=== PATIENT | female | born 2000 | race Caucasian/White ===

== ENCOUNTER 2021-02-26 09:48 | Emergency (ER) | payer OTHER, SELFPAY ==
--- NOTE | 2021-02-26 09:51 | ED.ANIMALBIT ---
HPI - Animal Bite General Chief Complaint: Wound/Laceration Stated Complaint: Dog bite on 2 Fingers on left Hand Time Seen by Provider: 02/26/21 09:51 Source: patient and RN notes reviewed History of Present Illness HPI narrative: Patient is a 20-year-old female who presents the urgent care with complaints of a dog bite to the left hand. Patient states that it was her dog and she accidentally hit his face while he was sleeping and made him bite her . Patient states he is up-to-date on vaccinations and she is also up-to-date on her tetanus shot. Patient states that she has rinsed off the wounds but has not cleaned them prior to arrival. Patient states that happened approximately 1 hour ago. No other acute complaints. No acute distress noted. Patient read the plan of care. Some parts of this dictation were generated by voice recognition software and may contain typographical and/or grammatical inaccuracies. Related Data Allergies Allergy/AdvReac Type Severity Reaction Status Date / Time No Known Allergies Allergy Verified 02/26/21 10:07 Review of Systems Review of Systems: CONSTITUTIONAL: Denies fever, chills, or sweats. EYES: Denies visual changes, redness, or discharge. ENT: Denies rhinorrhea, congestion, sore throat, or otalgia. CARDIOVASCULAR: Denies chest pain, palpitations, or edema. RESPIRATORY: Denies cough or dyspnea. GASTROINTESTINAL: Denies abdominal pain, nausea, vomiting, or diarrhea. GENITOURINARY: Denies dysuria or hematuria. SKIN: Reports of wounds from a dog bite to the fourth and fifth digits of the left hand MUSCULOSKELETAL: Denies back pain, joint pain, or myalgia. NEUROLOGIC: Denies headache, numbness, or weakness. All other systems reviewed are negative, except as documented in HPI. PMFSH Comments At the time of my signature, I reviewed and agree with the nursing past medical, surgical, social, and family history. There is no relevant family history pertinent to the patient complaint. Exam Narrative: GENERAL: This is a well-nourished, well-developed patient, in no apparent distress. HEAD: normocephalic, atraumatic. EYES: PERRL. Sclera clear/white. Vision is grossly intact. EARS: External ears normal NOSE: External nose normal with no obvious nasal discharge, nares without redness, no rhinorrhea. THROAT: Mucous membranes moist NECK: Neck supple CARDIOVASCULAR: Regular rate and rhythm without murmurs, gallops, or rubs. RESPIRATORY: Clear to auscultation. Breath sounds equal bilaterally. No wheezes, rales, or rhonchi. SKIN: 3 cm linear superficial dog bite to the radial aspect of the fourth left digit. Puncture wound to the ulnar aspect of the fourth left digit. Puncture wound to the tuft of the fifth left digit NEURO: awake, alert, and oriented to person, place and time. There were no obvious focal neurologic abnormalities. EXTREMITIES: No clubbing, cyanosis, or edema. Positive strong left radial pulse with capillary refill less than 2 seconds. Range of motion to left upper extremity/hand/fingers within normal limits Course Vital Signs Vital signs: Vital Signs Temperature 98.1 F 02/26/21 10:00 Pulse Rate 85 02/26/21 10:00 Respiratory Rate 14 02/26/21 10:00 Blood Pressure 145/67 H 02/26/21 10:00 Pulse Oximetry 100 02/26/21 10:00 Temperature 98.1 F 02/26/21 10:00 Pulse Rate 85 02/26/21 10:00 Respiratory Rate 14 02/26/21 10:00 Blood Pressure 145/67 H 02/26/21 10:00 Pulse Oximetry 100 02/26/21 10:00 Reviewed-patient is informed that they may have pre-hypertension or hypertension based on a blood pressure reading in the department. I recommend the patient call the primary care provider listed on their discharge instructions or a physician of their choice this week to arrange follow-up for further evaluation of possible pre-hypertension or hypertension. MDM - Animal Bite MDM Narrative Medical decision making narrative: Advised the patient to keep the wounds very clean
[2021-02-26 10:00] VITALS: BP 145/67; PULSE 85; RESP 14; TEMP 36.7; O2SAT 100
== END 2021-02-26 10:21 | disposition home or self-care (01) ==
PROVIDERS: Emergency Provider Nurse Practitioner Family
DX: S61.255A Open bite of left ring finger without damage to nail, initial encounter (principal); S61.257A Open bite of left little finger without damage to nail, initial encounter; W54.0XXA Bitten by dog, initial encounter
CPT/HCPCS: 99203; G0463

== ENCOUNTER 2021-04-02 17:10 | Emergency (ER) | payer OTHER, SELFPAY ==
[2021-04-02 17:19] VITALS: BP 122/65; PULSE 87; RESP 14; TEMP 36.8; O2SAT 100
--- NOTE | 2021-04-02 17:58 | ED.URI ---
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 Patient has no fever has no nausea vomiting diarrhea had her first Covid vaccine last Wednesday has already had her flu shot Related Data Allergies Allergy/AdvReac Type Severity Reaction Status Date / Time No Known Allergies Allergy Verified 04/02/21 17:29 Review of Systems Review of Systems: CONSTITUTIONAL: Denies fever, chills, sweats. EYES: Denies visual changes, redness, discharge. ENT: Denies rhinorrhea, has congestion, has sore throat, otalgia. CARDIOVASCULAR: Denies chest pain, palpitations, edema. RESPIRATORY: Denies dyspnea, wheezing, no cough GASTROINTESTINAL: Denies abdominal pain, nausea, vomiting, diarrhea. GENITOURINARY: Denies dysuria, hematuria, abnormal discharge SKIN: Denies rash or itching. NEUROLOGIC: Denies numbness, or focal weakness. PSYCHIATRIC: Denies anxiety or depression. FORMERLY [facility], 1928–1983 Past Medical History Medical History No acute medical problems Family History Family History Other Diabetes mellitus Hypertension Social History Social History (Updated 04/02/21 @ 18:04 by Naty Mariscal CNP) Smoking status: Former smoker Alcohol intake: current Comments At time of signature, I agree with nursing past medical, surgical, social and family history. There is no relevant family history pertinent to the presenting complaint. Exam Narrative: GENERAL: This is a well-nourished, well-developed patient, in mild distress. HEAD: normocephalic, atraumatic. EYES: Sclera clear/white. Vision is grossly intact. EARS: External ears normal, auditory canals clear and without drainage, TMs normal without perforation. Hearing grossly intact. NOSE: External nose normal without nasal discharge, nares without redness, no rhinorrhea. THROAT: Mucous membranes moist, posterior pharynx mild erythema consistent with nasal drainage NECK: Neck supple, non-tender CARDIOVASCULAR: Regular rate and rhythm without murmurs, gallops, or rubs. RESPIRATORY: Clear to auscultation. Breath sounds equal bilaterally. No wheezes, rales, or rhonchi. GASTROINTESTINAL: Abdomen soft, non-tender, SKIN: warm, intact with no suspicious lesions or rash, good texture and turgor. NEURO: awake, alert, and oriented to person, place and time. There were no obvious focal neurologic abnormalities. Steady gait EXTREMITIES: Normal range of motion. BACK: Nontender without deformity Course Course Emergency Course: Patient here for evaluation of sore throat that started 1 hour ago-states that it was difficult for swallow all of a sudden and she was worried about having strep throat are some side effect of the Covid vaccine 5 days out Strep is negative Started on prednisone and Cepacol lozenges, zyrtec Vital Signs Vital signs: Vital Signs Temperature 98.2 F 04/02/21 17:19 Pulse Rate 87 04/02/21 17:19 Respiratory Rate 14 04/02/21 17:19 Blood Pressure 122/65 04/02/21 17:19 Pulse Oximetry 100 04/02/21 17:19 Temperature 98.2 F 04/02/21 17:19 Pulse Rate 87 04/02/21 17:19 Respiratory Rate 14 04/02/21 17:19 Blood Pressure 122/65 04/02/21 17:19 Pulse Oximetry 100 04/02/21 17:19 MDM - URI/Sore Throat Differential Diagnosis Differential diagnosis: Likely viral infection, pharyngitis and other Lab Data Labs: Strep Screen Presumptive Negative *(Reference Range: Negative)* Critical Care Time Critical Care Time Critical Care Time: No Discharge Plan Discharge
== END 2021-04-02 18:14 | disposition home or self-care (01) ==
PROVIDERS: Emergency Provider Nurse Practitioner
DX: J02.9 Acute pharyngitis, unspecified (principal); Z87.891 Personal history of nicotine dependence
CPT/HCPCS: 87081; 87880; 99213; G0463

== ENCOUNTER 2024-05-28 09:41 | Emergency (ER) | payer SELFPAY ==
[2024-05-28 09:50] VITALS: BP 109/72; PULSE 79; RESP 18; TEMP 36.4; O2SAT 100
[2024-05-28 09:54] VITALS: BP 109/72; PULSE 79; RESP 18; TEMP 36.4; O2SAT 100
--- NOTE | 2024-05-28 11:07 | ED_ITS ---
HPI - General Adult General Chief complaint: Upper Respiratory Infection Stated complaint: Sore Throat Source: patient Mode of arrival: ambulatory Limitations: no limitations History of Present Illness HPI narrative: Patient presents for evaluation of sore throat since yesterday. She also has an occasional cough. In individual with whom she came into brief contact at work was recently sick. Their interaction was simply in passing. She denies any fever, chills, nausea, vomiting, diarrhea. She is taking [id number] cough medication. She does vape. Related Data Home Medications Medication Instructions Recorded Confirmed No Home Medications 05/28/24 05/28/24 Allergies Allergy/AdvReac Type Severity Reaction Status Date / Time No Known Allergies Allergy Verified 05/28/24 09:54 Review of Systems Review of Systems: CONSTITUTIONAL: Denies fever, chills, or sweats. EYES: Denies visual changes, redness, or discharge. ENT: Reports sore throat. Denies rhinorrhea, congestion, or otalgia. CARDIOVASCULAR: Denies chest pain, palpitations, or edema. RESPIRATORY: Reports cough. Denies shortness of breath. GASTROINTESTINAL: Denies abdominal pain, nausea, vomiting, or diarrhea. GENITOURINARY: Denies dysuria or hematuria. SKIN: Denies rash or itching. MUSCULOSKELETAL: Denies back pain, joint pain, or myalgia. NEUROLOGIC: Denies headache, numbness, dizziness, or weakness. PSYCHIATRIC: Denies anxiety or depression. PMFSH Past Medical History Medical History No acute medical problems Surgical History Surgical History No significant past surgical history Family History Family History Other Diabetes mellitus Hypertension Social History Social History Smoking status: Current every day smoker Tobacco type: e-cigarettes/vaping Alcohol intake: current Substance use: never Gender identity (if verbalized by the patient): Female Spiritual care concerns: No Exam Narrative: GENERAL: Well-appearing, well-nourished, and in no acute distress. HEAD: Normocephalic, atraumatic. EYES: PERRLA and EOMI. ENT: Nares clear, no rhinorrhea or epistaxis. Mucous membranes moist. There is posterior pharyngeal erythema. Oropharynx without tonsillar hypertrophy exudate or other lesions. Bilateral TMs pearly harvey nonbulging NECK: Supple. No adenopathy or masses. No carotid bruits or JVD CHEST: Clear to auscultation. No respiratory distress. No wheezes rales or rhonchi HEART: Regular rate and rhythm. No murmur heard. Normal peripheral pulses. ABDOMEN: Soft, nontender, nondistended, normal active bowel sounds. EXTREMITIES: Normal range of motion. No edema. SKIN: Warm, dry, no rash. NEURO: No focal deficits. Alert and oriented x3. PSYCH: Normal mood and affect. Course Course Emergency Course: This is a 23-year-old female who presented for evaluation of sore throat and cough. Rapid strep negative. Will send throat culture. Exam consistent with viral illness. Recommend [id number] agents for symptom management. Follow up with primary provider. Advised on smoking cessation. Go to the ER for worsening symptoms. Patient in agreement with plan of care Level of Care: Express Care Visit Vital Signs Vital signs: Vital Signs Temperature 36.4 C 05/28/24 09:50 Pulse Rate 79 05/28/24 09:50 Respiratory Rate 18 05/28/24 09:50 Blood Pressure 109/72 05/28/24 09:50 Pulse Oximetry 100 05/28/24 09:50 Oxygen Delivery Room Air 05/28/24 09:50 Temperature 36.4 C 05/28/24 09:54 Pulse Rate 79 05/28/24 09:54 Respiratory Rate 18 05/28/24 09:54 Blood Pressure 109/72 05/28/24 09:54 Pulse Oximetry 100 05/28/24 09:54 Oxygen Delivery Room Air 05/28/24 09:54 Medical Decision Making Vital Signs Vital Signs: Vital Signs Temperature 36.4 C 05/28/24 09:50 Pulse Rate 79 05/28/24 09:50 Respiratory Rate 18 05/28/24 09:50 Blood Pressure 109/72 05/28/24 09:50 Pulse Oximetry 100 05/28/24 09:50 Oxygen Delivery Room Air 05/28/24 09:50 Temperature 36.4 C 05/28/24 09:54 Pulse Rate 79 05/28/24 09:54 Respiratory Rate 18 05/28/24 09:54 Blood Pressure 109/72 05/28/24 09:54 Pulse Oximetry 100 05/28/24 09:54 Oxygen Delivery Room Air 05/28/24 09:54 Discharge Plan Discharge Clinical Impression: Pharyngitis Patient Disposition: Home, Self-Care Condition: Stable Instructions: Antibiotic Form, Pharyngitis (ED) Additional Instructions: CEPACOL LOZENGES AND IBUPROFEN SHOULD HELP WITH YOUR SYMPTOMS Patient Language: [place] Prescriptions: No Action No Home Medications Follow-up/Referrals: Ramiro Giron MD [Physician] - Stand Alone Forms: Work/School Release IP Time of Disposition: 11:01
[2024-05-28 11:37] LABS: EDSTREPNEGPOS1 Negative (Negative)
== END 2024-05-28 11:03 | disposition home or self-care (01) ==
PROVIDERS: Emergency Provider Nurse Practitioner
DX: J02.9 Acute pharyngitis, unspecified (principal); F17.290 Nicotine dependence, other tobacco product, uncomplicated
CPT/HCPCS: 87081; 87880; 99213; G0463